=== PATIENT | female | born 1965 | race Native Hawaiian/Other Pacific Islander ===

== ENCOUNTER 2021-05-31 21:13 | Emergency (ER) | payer BC ==
[~2021-05-31] VITALS: Ht 170.2 cm; Wt 68.0 kg
[2021-05-31 22:46] VITALS: BP 151/89; TEMP 97.8
== END 2021-05-31 22:46 | disposition home or self-care (01) ==
LOC: ED 21:13
PROC: 0HQGXZZ Repair Left Hand Skin, External Approach (ICD-10-PCS; principal; 2021-05-31)
DX: S61.412A Laceration without foreign body of left hand, initial encounter (principal); W26.0XXA Contact with knife, initial encounter; Y93.G9 Activity, other involving cooking and grilling; Y92.89 Other specified places as the place of occurrence of the external cause
CPT/HCPCS: 90472; 90715; 96372; 99283; J0690; J1885; J7040

== ENCOUNTER 2021-10-11 11:18 | Outpatient (CLI) | payer OTHER | END 2021-10-11 18:58 | disposition home or self-care (01) | LOC: CT 11:18 | PROVIDERS: ATTEND Nurse Practitioner | DX: I25.84 Coronary atherosclerosis due to calcified coronary lesion (principal) ==

== ENCOUNTER 2022-01-03 12:47 | Outpatient (CLI) | payer OTHER | END 2022-01-03 19:20 | disposition home or self-care (01) | LOC: MAMMO 12:47 | PROVIDERS: ATTEND Student in an Organized Health Care Education/Training Program | DX: Z12.31 Encounter for screening mammogram for malignant neoplasm of breast (principal) ==

== ENCOUNTER 2022-03-08 12:04 | Outpatient (CLI) | payer OTHER | END 2022-03-08 19:49 | disposition home or self-care (01) | LOC: MAMMO 12:04 | PROVIDERS: ATTEND Student in an Organized Health Care Education/Training Program | DX: R92.8 Other abnormal and inconclusive findings on diagnostic imaging of breast (principal) ==

== ENCOUNTER 2022-10-24 11:26 | Outpatient (CLI) | payer OTHER | END 2022-10-24 19:18 | disposition home or self-care (01) | LOC: RAD 11:26 | PROVIDERS: ATTEND Nurse Practitioner | DX: M85.88 Other specified disorders of bone density and structure, other site (principal); R92.8 Other abnormal and inconclusive findings on diagnostic imaging of breast | CPT/HCPCS: G0279 ==